=== PATIENT | male | born 1995 | race Caucasian/White ===

== ENCOUNTER 2025-04-04 13:15 | Emergency (ER) | payer MEDICAID, OTHER ==
[~2025-04-04] VITALS: Ht 172.7 cm; Wt 80.0 kg
[2025-04-04 13:25] VITALS: O2SAT 100
[2025-04-04] MEDS: TETANUS, DIPHTHERIA, PERTUSSIS VAC/PF 0.5ML (>10YR OLD) IM ONE (14:54)
[2025-04-04] MEDS: MORPHINE SULFATE 4 MG/ML INJ (FOR IV/IM USE) IM ONE (14:59)
[2025-04-04] MEDS: CEFAZOLIN SODIUM 1000MG/VIAL IM ONE (15:08)
[2025-04-04] MEDS ORDERED: HYDR-4001 MT (16:04)
[2025-04-04] MEDS ORDERED: IBUP-2030 MT (16:04)
[2025-04-04] MEDS ORDERED: CEPH500T MT (16:04)
[2025-04-04 16:24] VITALS: BP 125/63; PULSE 60; RESP 16; TEMP 36.7; O2SAT 100
== END 2025-04-04 16:27 | disposition home or self-care (01) ==
LOC: ER 13:15
DX: S68.120A Partial traumatic metacarpophalangeal amputation of right index finger, initial encounter (principal); Z79.899 Other long term (current) drug therapy; W23.0XXA Caught, crushed, jammed, or pinched between moving objects, initial encounter; Y93.89 Activity, other specified; Y92.89 Other specified places as the place of occurrence of the external cause; Y99.0 Civilian activity done for income or pay
CPT/HCPCS: 73140; 90715; 90471; 96372; 99284; J0690; J2270; Z7610 ×4; 96375